=== PATIENT | female | born 1970 | race Caucasian/White ===

== ENCOUNTER 2024-01-21 08:46 | Outpatient (CLI) | payer OTHER, SELFPAY ==
--- NOTE | ~2024-01-21 | MR_ITS ---
EXAMINATION: MR knee RT wo con DATE: 01/21/2024 09:25 INDICATION: SPRAIN OF MEDIAL COLLATERAL LIGAMENT TECHNIQUE: Magnetic resonance imaging (MRI) of the right knee was performed without intravenous contr ast. Sequences included axial PD-weighted FS FSE, coronal PD-weighted FSE and PD-weighted FS FSE, sag ittal PD-weighted FSE, and sagittal T2-weighted FS FSE. COMPARISON: None. FINDINGS: Medial compartment: Mild diffuse cartilage thinning and osteophytosis. Intact meniscus Lateral compartment: Mild diffuse cartilage thinning and osteophytosis. Intact meniscus. Patellofemoral compartment: Mild diffuse cartilage thinning and osteophytosis. Small full-thickness cartilage fissure on the medi al facet. Intact retinacula. Ligaments and tendons: Mild thickening and abnormal signal in the proximal MCL. The ACL, PCL, LCL, and remaining flexor and extensor tendons are intact Fluid: No significant joint fluid. Osseous/other: No suspicious focal or diffuse marrow signal. IMPRESSION: Mild partial MCL tear. Mild tricompartmental osteoarthritis. Reviewed, dictated and finalized at location K. [facility]
== END 2024-01-21 08:47 | disposition home or self-care (01) ==
PROVIDERS: Visit Provider Family Medicine
DX: S83.411A Sprain of medial collateral ligament of right knee, initial encounter (principal); M17.11 Unilateral primary osteoarthritis, right knee
CPT/HCPCS: 73721